=== PATIENT | female | born 2000 | race Caucasian/White ===

== ENCOUNTER 2021-08-29 17:24 | Emergency (ER) | payer SELFPAY ==
[~2021-08-29] VITALS: Ht 162.6 cm; Wt 167.2 kg
[2021-08-29] MEDS ORDERED: diphenhydrAMINE 50 MG/ML VIAL IM ONE (17:45)
[2021-08-29] MEDS ORDERED: KETOROLAC 60 MG/2 ML VIAL. IM ONE (17:45)
--- NOTE | 2021-08-29 18:57 | PHYS DOC ---
Past History Additional Past Medical Histor: pcos, tachycardia (YOGI MOORE APRN) Past Surgical History: Tonsillectomy (YOGI MOORE APRN) Alcohol Use: Rarely (YOGI MOORE APRN) General Adult EDM: Chief Complaint: HEADACHE HPI: HPI: Patient is a 21-year-old female presents with migraine. Patient states she has a history of migraine headaches. Patient took a Excedrin migraine earlier today which brought her headache to a 10/27. Patient states that she called her PCP after hours and they told her if pain did not go away to come to the ER. Denies nausea and vomiting. Denies light sensitivity or visual changes. (YOGI MOORE APRN) Review of Systems: Review of Systems: ROS At least 10 ROS systems have been reviewed and are negative except as documented in the HPI. General: Negative except as outlined in HPI above. Skin: Negative except as outlined in HPI above. HEENT: Negative except as outlined in HPI above. Neck: Negative except as outlined in HPI above. Respiratory: Negative except as outlined in HPI above.. Cardiovascular: Negative except as outlined in HPI above. Abdomen: Negative except as outlined in HPI above. : Negative except as outlined in HPI above. Back/MSK: Negative except as outlined in HPI above. Neuro: Negative except as outlined in HPI above. Psych: Negative except as outlined in HPI above. (YOGI MOORE APRN) Current Medications: Current Meds: Current Medications Medications (Trade) Dose Ordered Sig/Daniela Start Time Stop Time Status Last Admin Dose Admin Diphenhydramine HCl (Benadryl) 50 mg 1X ONCE 08/29/21 17:45 08/29/21 17:50 DC 08/29/21 18:12 50 MG Ketorolac Tromethamine (Toradol Im) 60 mg 1X ONCE 08/29/21 17:45 08/29/21 17:50 DC 08/29/21 18:12 60 MG (YOGI MOORE APRN) Allergies: Allergies: Allergies Coded Allergies Type Severity Reaction Last Updated Verified Penicillins Allergy Unknown 08/29/21 Yes Sulfa (Sulfonamide Antibiotics) Allergy Unknown 08/29/21 Yes metformin Allergy Unknown hives 08/29/21 Yes (YOGI MOORE APRN) Physical Exam: PE: Constitutional: Well developed, well nourished, no acute distress, non-toxic appearance. [] HENT: Normocephalic, atraumatic, bilateral external ears normal, oropharynx moist, no oral exudates, nose normal. [] Eyes: PERRLA, EOMI, conjunctiva normal, no discharge. [] Neck: Normal range of motion, no tenderness, supple, no stridor. [] Cardiovascular:Heart rate regular rhythm, no murmur [] Lungs & Thorax: Bilateral breath sounds clear to auscultation [] Abdomen: Bowel sounds normal, soft, no tenderness, no masses, no pulsatile masses. [] Skin: Warm, dry, no erythema, no rash. [] Back: No tenderness, no CVA tenderness. [] Extremities: No tenderness, no cyanosis, no clubbing, ROM intact, no edema. [] Neurologic: Alert and oriented X 3, normal motor function, normal sensory function, no focal deficits noted. [] Psychologic: Affect normal, judgement normal, mood normal. [] (YOGI MOROE APRN) Current Patient Data: Vital Signs: Vital Signs Date Time Temp Pulse Resp B/P (MAP) Pulse Ox O2 Delivery O2 Flow Rate FiO2 08/29/21 17:30 98.7 113 18 128/83 (98) 96 Room Air (YOGI MOORE APRN) EKG: EKG: [] (YOGI MOORE APRN) Radiology/Procedures: Radiology/Procedures: [] (YOGI MOORE APRN) Heart Score: C/O Chest Pain: No Risk Factors: Risk Factors: DM, Current or recent (<one month) smoker, HTN, HLP, family history of CAD, obesity. Risk Scores: Score 0 - 3: 2.5% MACE over next 6 weeks - Discharge Home Score 4 - 6: 20.3% MACE over next 6 weeks - Admit for Clinical Observation Score 7 - 10: 72.7% MACE over next 6 weeks - Early Invasive Strategies (YOGI MOORE APRN) Course & Med Decision Making: Course & Med Decision Making Pertinent Labs and Imaging studies reviewed. (See chart for details) [] 21-year-old female presents with migraine headache. Patient given IM Toradol and Benadryl. Rating pain 1/10. Denies nausea. Denies worst headache of her life or thunderclap. Patient is reporting headache has increased, 3/10. Patient's given dexamethasone and Phenergan. Patient states that she be getting multiple migraine headaches a week in the last year. CT shows Discussed results with patient. Advised patient she needs to follow-up with her PCP on Wednesday. Educated patient on drinking plenty of water. Motrin at home. Patient states she understands discharge instructions. Patient given strict return precautions. Patient is hemodynamically stable upon disposition. (YOGI MOORE APRN) Course & Med Decision Making Did not see or evaluate patient. Did not discuss patient with DESK REPRESENTATIVE. Agree with DESK REPRESENTATIVE's work-up and disposition per note. (TERA BAUER MD) Dragon Disclaimer: Dragon Disclaimer: This electronic medical record was generated, in whole or in part, using a voice recognition dictation system. (YOGI MOORE APRN) Departure Departure: Impression: Primary Impression: Migraine Qualified Codes: G43.909 - Migraine, unspecified, not intractable, without status migrainosus Disposition: HOME / SELF CARE / HOMELESS Condition: STABLE Referrals: JOLANTA BRUSH (PCP) Patient Instructions: Migraine Headache, [id number] Additional Instructions: You were seen in the emergency room for migraine headache. Your pain was treated while in the ER. CT of your head was negative for any acute abno rmality. Please call your physician and follow-up on Wednesday for further management. Make sure you are drinking plenty of water at home. Take ibuprofen for pain. Return to the emergency room with worsening symptoms or concerns EMERGENCY DEPARTMENT GENERAL DISCHARGE INSTRUCTIONS Thank you for coming to [facility] (ED) today and trusting us with you care. We trust that you had a positivie experience in our Emergency Department. If you wish to speak to the department management, you may call the director at [phone]. YOUR FOLLOW UP INSTRUCTIONS ARE FOLLOWS: 1. Do you have a private Doctor? If you do not have a private doctor, please ask for a resource list of physicians or clinics that may be able to assist you with fol low up care. 2. The Emergency Physician has interpreted your x-rays. The X-Ray specialist will also review them. If there is a change in the findings, you will be notified in 48 hours when at all possible. 3. A lab test or culture has been done, your results will be reviewed and you will be notified if you need a change in treatment. ADDITIONAL INSTRUCTIONS AND INFORMATION: 1. Your care today has been supervised by a physician who is specially trained in emergency care. Many problems require more than one evaluation for a complete diagnosis and treatment. We recommend that you schedule your follow up appointment as r ecommended to ensure complete treatment of you illness or injury. If you are unable to obtain follow up care and continue to have a problem, or if your condition worsens, we recommend that you return to the ED. 2. We are not able to safely determine your condition over the phone nor are we able to give sound medical advice over the phone. For these safety reasons, if you call for medical advice we will ask you to come to the ED for further evaluation. 3. If you have any questions regarding these discharge instructions please call the ED at [phone]. SAFETY INFORMATION: In the interest of safety, wellness, and injury prevention; we encourage you to wear your sealbelt, if you smoke; quite smoking, and we encourage family to use a protective helmet for bicycling and other sporting events that present an increased risk for head injury. IF YOUR SYMPTOMS WORSEN OR NEW SYMPTOMS DEVELOP, OR YOU HAVE CONCERNS ABOUT YOUR CONDITION; OR IF YOUR CONDITION WORSENS WHILE YOU ARE WAITING FOR YOUR FOLLOW UP APPOINTMENT; EITHER CONTACT YOUR PRIMARY CARE DOCTOR, THE PHYSICIAN WHOSE NAME AND NUMBER YOU WERE GIVEN, OR RETURN TO THE ED IMMEDIATELY. YOGI MOORE APRN Aug 29, 2021 18:57 TERA BAUER MD Aug 29, 2021 22:27
[2021-08-29] MEDS ORDERED: DEXAMETHASONE 4 MG TABLET PO ONE (19:30)
[2021-08-29] MEDS ORDERED: PROMETHAZINE 25 MG TABLET. PO ONE (19:30)
[2021-08-29 20:00] VITALS: BP 131/77
--- NOTE | 2021-08-29 20:25 | RAD ---
STUDY: CT head without contrast INDICATION: Migraine. COMPARISON: None. TECHNIQUE: Axial CT imaging through the head without the use of intravenous contrast. Sagittal and co frank reformats were obtained. One or more of the following individualized dose reduction techniques were utilized for this examinat ion: 1. Automated exposure control 2. Adjustment of the mA and/or kV according to patient size 3. Use of iterative reconstruction technique. FINDINGS: Partially degraded study secondary to streak artifact from earrings which the patient declined to rem ove. No acute intracranial hemorrhage. No mass effect, midline shift or hydrocephalus. Shaw-white matter d ifferentiation is maintained. Unremarkable calvarium. Incidental bilateral optic drusen. No layering fluid seen within the visualiz ed paranasal sinuses. Unremarkable mastoid air cells and middle ears. IMPRESSION: Unremarkable head CT. Electronically signed by: EMELI ENGLE MD (08/29/2021 8:23 PM) [facility]
== END 2021-08-29 20:24 | disposition home or self-care (01) ==
LOC: ER 17:24
DX: G43.909 Migraine, unspecified, not intractable, without status migrainosus (principal); Z88.0 Allergy status to penicillin; Z88.2 Allergy status to sulfonamides; Z88.8 Allergy status to other drugs, medicaments and biological substances
CPT/HCPCS: 70450; 96372; 99284; J1200; J1885; J8540; Q0169

== ENCOUNTER → 2022-03-16 | Outpatient (CLI) | payer BC ==
[2022-03-16 13:24] LABS: CALCIUM 9.2 mg/dL (8.5-10.1); CREATININE 0.9 mg/dL (0.6-1.0); GFR 78.3; POTASSIUM 3.9 mmol/L (3.5-5.1)
== END ==
LOC: ER 12:29
PROVIDERS: ATTEND Family Medicine
DX: R73.01 Impaired fasting glucose (principal); Z79.899 Other long term (current) drug therapy
CPT/HCPCS: 80048; 83036